=== PATIENT | male | born 1970 | race Caucasian/White ===

== ENCOUNTER → 2024-03-07 | Day surgery (SDC) | payer BC ==
[~2024-03-07] MED LIST: FENTANYL CITRATE/PF 100MCG/2 ML INJ ONE; HYOSCYAMINE SULFATE 0.5 MG/ML INJ ONE; LIDOCAINE HCL 2% LOCAL INJ 5 ML SDV VIAL INJ ONE; LISINOPRIL-HCT1 EAC1 PO; MIDAZOLAM HCL 2 MG/2 ML VIAL ONE; PROPOFOL IV EMULSION 10 MG/ML 20 ML VIAL ONE; ROSUVASTATIN CAL5 MG PO
[2024-03-07] MEDS: LACTATED RINGER'S 1,000 ML ONE (06:03)
[2024-03-07 08:09] VITALS: TEMP 98.5
[2024-03-07 08:20] VITALS: BP 129/84; PULSE 96; RESP 15; O2SAT 96
== END | disposition home or self-care (01) ==
LOC: OR 05:25
PROVIDERS: ATTEND Internal Medicine Gastroenterology
DX: Z12.11 Encounter for screening for malignant neoplasm of colon (principal); D12.2 Benign neoplasm of ascending colon; D12.5 Benign neoplasm of sigmoid colon; K64.8 Other hemorrhoids; I10 Essential (primary) hypertension; E78.5 Hyperlipidemia, unspecified; Z88.8 Allergy status to other drugs, medicaments and biological substances; Z01.810 Encounter for preprocedural cardiovascular examination; Z79.899 Other long term (current) drug therapy
CPT/HCPCS: 45380; 45385; 93005; J1980; J2003; J2250; J2704; J3010; J7121; 45378